=== PATIENT | female | born 2000 | race Caucasian/White ===

== ENCOUNTER 2019-03-17 20:02 | Emergency (ER) | payer OTHER ==
[~2019-03-17] VITALS: Ht 160 cm; Wt 54.4 kg
== END 2019-03-18 00:08 | disposition home or self-care (01) ==
LOC: ER 20:02
DX: N39.0 Urinary tract infection, site not specified (principal); K29.70 Gastritis, unspecified, without bleeding

== ENCOUNTER 2025-02-19 22:32 | Emergency (ER) | payer OTHER ==
[~2025-02-19] VITALS: Ht 160 cm; Wt 56.2 kg
== END 2025-02-20 00:07 | disposition home or self-care (01) ==
LOC: ER 23:04
DX: O20.8 Other hemorrhage in early pregnancy (principal); Z3A.01 Less than 8 weeks gestation of pregnancy

== ENCOUNTER 2025-03-23 16:33 | Inpatient (IN) | payer OTHER ==
[~2025-03-23] VITALS: Ht 160 cm; Wt 59.0 kg
[2025-03-23] MEDS ORDERED: PRENATABS RX T1 EACH PO (16:40)
--- NOTE | 2025-03-23 16:40 | NUR ---
PTE EMBARAZADA REFIERE SANGREDO VAGINAL Y MOLESTIA EN ESPALDA BAJA QUE IRRADIA HACIA PELVIS.
[2025-03-23] MEDS ORDERED: RINGERS SOLUTION,LACTATED 1,000 ML IV STA (18:23)
--- NOTE | 2025-03-23 18:38 | NUR ---
SE ORIENTA A PACIENTE SOBRE [place] MEDICO, REFIERE ENTENDER. SE REALIZAN MUESTRAS DE LABORATORIO BAJO MEDIDAS ASEPTICAS. SE ADMINISTRA IV'S MEETA ORDEN MEDICA. SE COORDINA SONOGRAMA. PENDIENTE RE-EVALUACION MEDICA.
[2025-03-23 19:01] LABS: INR 0.96
[2025-03-23 19:09] LABS: BASO % 0.4 % (0.1-1.2); EOS # 0.20 (0.04-0.54); EOS % 2.5 % (0.7-7.0); LYMPH # 1.52 (1.18-3.74); LYMPH % 19.0 % (19.3-53.1); MEAN PLATELET VOLUME 12.30 fl (9.4-12.4); MONO # 0.59 (0.24-0.82); MONO % 7.4 % (4.7-12.5); NEUT # 5.64 (1.56-6.13); NEUT % 70.6 % (34.0-71.1); RED CELL DISTRIBUTION WIDTH 11.5 % (11.6-14.4)
[2025-03-23 19:10] LABS: ALT/SGPT 31.0 U/L (12-78); AST/SGOT 19.0 U/L (15-37); BILIRUBIN TOTAL 0.82 mg/dL (0.3-1.2); BUN CREA RATIO 20.0 (7.0-25.0); CREATININE SERUM 0.64 mg/dL (0.55-1.02); GFR 111.31; GLOBULINA 3.7 G/DL (2.4-3.5); GLUCOSE FASTING 83.0 mg/dL (65-100); HCG QUANTITATIVE 471.0 mUI/mL (1-3); OSMOLALITY SERUM 284.0 MOSM/KG (275-295)
[2025-03-23 19:13] LABS: URINE APPEARANCE Cloudy; URINE BILIRRUBIN Negative (NEGATIVE); URINE BLOOD Large; URINE COLOR Yellow; URINE GLUCOSE Negative (NEGATIVE); URINE KETONE Negative (NEGATIVE); URINE LEUKOCYTE Small; URINE NITRATE Negative; URINE PROTEIN Trace (NEGATIVE); URINE UROBILINOGEN 1.0 E.U./dl
[2025-03-23 19:16] LABS: URINE BACTERIA 9763.2 uL (0.0-1933); URINE EPITHELIAL CELLS 19.3 uL (0.0-38.8); URINE RBC 11.1 uL (0.0-20.8); URINE WBC 82.6 uL (0.0-23.2)
[2025-03-23 19:25] LABS: URINE CAST 0.00 uL (0.0-1.40)
--- NOTE | 2025-03-23 23:51 | NUR ---
SE RECIBE PTE ALERTA Y ORIENTA X3, BUEN PATRON RESPIRATORIO, CANALIZADA EN BRAZO DERECHO ANGIO #[id number], PATENTE, RECIBIENDO 0.9%NSS BAJANDO A 125 MLS/HR. PTE EN CONSULTA CON DR. PATEL.
--- NOTE | 2025-03-24 07:13 | NUR ---
PTE ALERTA Y ORIENTADA X3 EN ANTIONETTE EN POSICION SEMI SENTADA CON BARANDAS ELEVADAS POR PERDUE SEGURIDAD. PTE CANALIZADA AREA JANINE DE EDEMA Y ENROJECIMIENTO. PTE RECIBIENDO INFUSION DE RL @ 125 ML/HR. PTE EN CONSULTAS CON DR. DEANNE PURDY. SE MANTIENE BAJO OBSERVACION POR CAMBIO
[2025-03-24] MEDS ORDERED: CEFAZOLIN SODIUM 2,000 MG in 0.9 % SODIUM CHLORIDE 100 ML IV SCH (09:00)
[2025-03-24 11:12] VITALS: BP 102/61; O2SAT 99
[2025-03-24 17:00] VITALS: BP 101/61
[2025-03-24] MEDS ORDERED: PROMETHAZINE HCL 25 MG/ML AMPUL IV ONE (18:45)
[2025-03-25] VITALS: BP 95/60
[2025-03-25] MEDS ORDERED: PROMETHAZINE HCL 25 MG/ML AMPUL IV ONE (01:00)
[2025-03-25 08:16] VITALS: BP 93/68
[2025-03-25] MEDS ORDERED: METHOTREXATE 25 MG/ML IM NR (08:30)
[2025-03-25 17:01] VITALS: BP 90/60
[2025-03-26 00:07] VITALS: BP 99/66
[2025-03-26 08:00] VITALS: BP 93/60
== END 2025-03-26 09:36 | disposition home or self-care (01) | DRG 832 ==
LOC: ER 16:37 → OB/GYN 03-24 08:53
PROVIDERS: General Practice; ADMIT Obstetrics & Gynecology; ATTEND Obstetrics & Gynecology
PROC: BU4CZZZ Ultrasonography of Uterus and Ovaries (ICD-10-PCS; 2025-03-23)
PROC: 4A1HXCZ Monitoring of Products of Conception, Cardiac Rate, External Approach (ICD-10-PCS; principal; 2025-03-24)
PROC: BT43ZZZ Ultrasonography of Bilateral Kidneys (ICD-10-PCS; 2025-03-24)
DX: O26.891 Other specified pregnancy related conditions, first trimester (principal); N39.0 Urinary tract infection, site not specified; O23.41 Unspecified infection of urinary tract in pregnancy, first trimester; K29.70 Gastritis, unspecified, without bleeding; N20.0 Calculus of kidney; Z3A.09 9 weeks gestation of pregnancy